=== PATIENT | male | born 1980 | race Caucasian/White ===

== ENCOUNTER 2020-05-29 07:27 | Outpatient (CLI) | payer OTHER ==
[2020-05-29 18:12] LABS: #Basophils 0.1 thou/uL (0.0-0.2); #Eosinphils 0.2 thou/uL (0.0-0.7); #Lymphocytes 2.2 thou/uL (1.20-3.40); #Monocytes 0.7 thou/uL (0.11-0.59); #Neutrophils 6.6 thou/uL (1.40-6.50); %Basophils 0.8 % (0.0-1.0); %Eosinophils 1.8 % (0.0-10.0); %Lymphocytes 22.7 % (21.0-51.0); %Monocytes 6.7 % (0.0-10.0); %Neutrophils 67.9 % (42.0-75.0); Hemoglobin 14.5 g/dL (14.0-18.0); Mean Corpuscular HGB CONC 33.7 g/dL (32.0-36.0); Mean Corpuscular Hemoglobin 30.6 pg (27.0-31.0); Mean Corpuscular Volume 90.9 fL (78.0-98.0); Mean Platelet Volume 8.1 fL (7.4-10.4); Platelet Count 326 thou/uL (130-400); RBC Distribution Width 11.9 % (11.5-14.5); Red Blood Cell (RBC) Count 4.73 mill/uL (4.70-6.10); White Blood Cell (WBC) Count 9.7 thou/uL (4.8-10.8)
[2020-05-30 11:57] LABS: SARS-CoV-2 MS2 Positive; SARS-CoV-2 N Gene Negative; SARS-CoV-2 S Gene Negative; SARS-CoV-2 by NAA Not Detected (NotDetected); SARS-CoV-2 orf1ab Negative
== END 2020-05-29 07:28 | disposition home or self-care (01) ==
LOC: LABBT 07:27
PROVIDERS: ATTEND Orthopaedic Surgery Hand Surgery
DX: Z01.812 Encounter for preprocedural laboratory examination (principal); Z20.828 Contact with and (suspected) exposure to other viral communicable diseases; S62.201A Unspecified fracture of first metacarpal bone, right hand, initial encounter for closed fracture
CPT/HCPCS: 85025; 87635; U0003

== ENCOUNTER 2020-06-01 08:19 | Day surgery (SDC) | payer OTHER ==
[2020-05-30 10:48] VITALS: BMI 28.0
[2020-06-01] MEDS ORDERED: Sodium Chloride 0.9% 10 ML ONE (12:57)
[2020-06-01] MEDS ORDERED: Bacitracin Zinc Ointment 30 gm TUBE ONE (12:57)
[2020-06-01] MEDS ORDERED: HYDROmorphone 0.5 MG/0.5 ML SYRINGE ONE (12:57)
[2020-06-01] MEDS ORDERED: Midazolam HCl 2 mg/2 ml Vial ONE (13:11)
[2020-06-01] MEDS ORDERED: PROPOFOL 200 MG/20 ML VIAL ONE (13:37)
[2020-06-01] MEDS ORDERED: Lidocaine 1% PF 5 ML VIAL ONE (13:37)
[2020-06-01] MEDS ORDERED: EPHEDRINE 25 MG/5 ML SYRINGE ONE (13:37)
[2020-06-01] MEDS ORDERED: Ondansetron PF 4 MG/2 ML Vial ONE (13:37)
[2020-06-01] MEDS ORDERED: Ketorolac Tromethamine 30 MG/ML VIAL ONE (13:37)
[2020-06-01] MEDS ORDERED: Dexamethasone 20 MG/5 ML VIAL ONE (13:37)
--- NOTE | 2020-06-01 15:34 | RAD ---
EXAM: 3 views of the right thumb HISTORY: ORIF of right thumb fracture COMPARISON: 05/17/2020 FINDINGS/IMPRESSION: The patient is status post plate and screw fixation of a fracture the base of th e thumb metacarpal. No perihardware lucency is seen.
[2020-06-01] MEDS ORDERED: Fentanyl 100 MCG/2 ML VIAL ONE (15:39)
--- NOTE | 2020-06-03 09:44 | OP ---
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 FINDINGS: Copious fracture hematoma, but with evidence of previous value based on description and inability to move the fracture by closed means. PROCEDURES PERFORMED: 1. C-arm supervision. 2. Open reduction internal fixation of thumb metacarpal fracture. 3. Open treatment of malunion thumb metacarpal fracture with bone graft and internal fixation. TOURNIQUET TIME: 57 minutes. ESTIMATED BLOOD LOSS: Less 10 mL. INDICATION: Patient had a fall in which he described already a "top of my hand bump." This occurred after a fall. When radiograph showed a displaced thumb metacarpal fracture only approximately 6 mm of bone proximal to the fracture line, open reduction internal fixation was indicated. He agreed to proceed. DESCRIPTION OF PROCEDURE: After successful general endotracheal anesthesia, the limb was prepped and draped. We gave the patient 10 mL of 0.5% Marcaine after outlined incision along the dorsal ulnar aspect of the thumb. The incision was then carried to the appropriate site by splitting the extensor from the pollicis brevis and the abductor pollicis longus, periosteum elevated, identified the fracture. We made a small hole in the extensor aburto which will be repaired later. The patient then had the fracture hematoma evacuated and did have a hematoma, we irrigated, performed a best fit reduction in the frontal sagittal plane, which was anatomic in the frontal plane. The sagittal plane was only approximately 10% displaced. We then began a standard K-wire fixation to hold this and using a drill/measure/tap technique, we were able to place appropriate screws and placed through a T-plate in which only one screw crossed the fracture line. Tourniquet was deflated. Hemostasis obtained. C-arm took final pictures and we had a correct count. Patient left the operating room without evidence of anesthetic or operative complication. Job ID: [id number]
== END 2020-06-01 17:35 | disposition home or self-care (01) ==
LOC: SDC 08:19
PROVIDERS: ATTEND Orthopaedic Surgery Hand Surgery
PROC: 0PSP04Z Reposition Right Metacarpal with Internal Fixation Device, Open Approach (ICD-10-PCS; principal; 2020-06-01)
DX: S62.231A Other displaced fracture of base of first metacarpal bone, right hand, initial encounter for closed fracture (principal); F17.200 Nicotine dependence, unspecified, uncomplicated; W19.XXXA Unspecified fall, initial encounter
CPT/HCPCS: 76000; C1713; J0690; J1100; J1170; J1885; J2250; J2405; J2704; J3010; J3490